=== PATIENT | male | born 1975 | race Caucasian/White ===

== ENCOUNTER 2018-12-19 17:02 | Emergency (ER) | payer BC ==
[~2018-12-19] VITALS: Ht 172.7 cm; Wt 113.4 kg
[2018-12-19 17:17] VITALS: BP 130/86
--- NOTE | 2018-12-19 17:49 | RAD ---
Indication:Possible fracture. Injury. TECHNIQUE: 3 views of the left foot COMPARISON:None FINDINGS: No acute fracture or dislocation. Electronically signed by: Ludin Levy DO (12/19/2018 5:46 PM) [facility]
[2018-12-19] MEDS ORDERED: HYDR-3165 PO (18:24)
[2018-12-19] MEDS ORDERED: DIPHTH,PERTUSS(ACELL),TET TOX 0.5 ML DISP.SYRIN. VAX IM ONE (18:30)
--- NOTE | 2018-12-19 18:51 | PHYS DOC ---
Past History Past Medical History: High Cholesterol, Hypertension Past Surgical History: Appendectomy, Other Additional Past Surgical Histo: eye Alcohol Use: Rarely Drug Use: None Adult General Chief Complaint Chief Complaint: TOE PROBLEM HPI HPI Patient is a 43-year-old male who dropped a heavy object onto his great toe 30 minutes prior to arrival patient has no history of diabetes he does take medications for chronic conditions he is 10 years status post a bone marrow transplant last tetanus status unknown positive bleeding dull moderate to severe nonradiating pain worse with palpation Review of Systems Review of Systems Constitutional: Denies fever or chills [] Eyes: Denies change in visual acuity, redness, or eye pain [] HENT: Denies nasal congestion or sore throat [] Respiratory: Denies cough or shortness of breath [] Musculoskeletal: D All other systems were reviewed and found to be within normal limits, except as documented in this note. Current Medications Current Medications Current Medications Medications (Trade) Dose Ordered Sig/Kade Start Time Stop Time Status Last Admin Dose Admin Diphtheria/ Tetanus/Acell Pertussis (Boostrix) 0.5 ml ONCE ONCE 12/19/18 18:30 12/19/18 18:31 DC 12/19/18 18:41 0.5 ML Allergies Allergies Allergies Coded Allergies Type Severity Reaction Last Updated Verified No Known Drug Allergies 12/19/18 No Physical Exam Physical Exam Constitutional: Well developed, well nourished, no acute distress, non-toxic appearance. [] HENT: Normocephalic, atraumatic, bilateral external ears normal, oropharynx moist, no oral exudates, nose normal. [] Eyes: PERRLA, EOMI, conjunctiva normal, no discharge. [] Neck: Normal range of motion, no tenderness, supple, no stridor. [] Abdomen: Bowel sounds normal, soft, no tenderness, no masses, no pulsatile masses. [] Skin there is a contusion noted to the great toe with a subungual hematoma as well as some bleeding coming from the proximal portion of the nailbed. Germinal H matrix appears grossly intact Back: No tenderness, no CVA tenderness. [] Extremities: Tenderness is noted above Neurologic: Alert and oriented X 3, normal motor function, normal sensory function, no focal deficits noted. [] Psychologic: Affect normal, judgement normal, mood normal. [] Current Patient Data Vital Signs Vital Signs Date Time Temp Pulse Resp B/P (MAP) Pulse Ox O2 Delivery O2 Flow Rate FiO2 12/19/18 17:17 98.5 90 18 100 Room Air EKG EKG [] Radiology/Procedures Radiology/Procedures [] Impressions: OMPARISON:None FINDINGS: No acute fracture or dislocation. Electronically signed by: Ludin Levy DO (12/19/2018 5:46 PM) [facility] DICTATED AND SIGNED BY: LUDIN LEVY DO DATE: 12/19/181745 CC: BONNIE MONTERO DO; [facility]; ELDA DUNBAR MD ~ Course & Med Decision Making Course & Med Decision Making Pertinent Labs and Imaging studies reviewed. (See chart for details) []X-ray negative in summary this is a 43-year-old male who suffered a blunt toe injury appears to have subungual hematoma as well as a loose nail I talked about the risks and benefits of the treatment options which would include conservative management with Xeroform and pressure dressing as well as profuse irrigation prior which is what we ended up agreeing performed in the emergency room. Tetanus status was given. We talked about possibly taking off the nail however of questionable ultimate benefit as he will lose the nail for sure regardless he prefers the conservative treatment option as noted above. Short course of pain medication was also provided patient voiced understanding of instructions no obvious fracture was identified on x-ray Dragon Disclaimer Dragon Disclaimer This electronic medical record was generated, in whole or in part, using a voice recognition dictation system. Departure Departure: Impression: Primary Impression: Subungual hematoma Disposition: HOME, SELF-CARE Condition: STABLE Patient Instructions: Subungual Hematoma, [id number] Scripts Hydrocodone Bit/Acetaminophen (NORCO 5-325 TABLET) 1 Each Tablet 1-2 TAB PO Q4-6HRS PRN for PAIN, #12 TAB 0 Refills Prov: ODALYS DE LA GARZA MD 12/19/18 ODALYS DE LA GARZA MD Dec 19, 2018 18:51
== END 2018-12-19 18:47 | disposition home or self-care (01) ==
LOC: ER 17:02
DX: S90.212A Contusion of left great toe with damage to nail, initial encounter (principal); E78.00 Pure hypercholesterolemia, unspecified; I10 Essential (primary) hypertension; W20.8XXA Other cause of strike by thrown, projected or falling object, initial encounter; Y93.89 Activity, other specified; Y92.89 Other specified places as the place of occurrence of the external cause; Y99.8 Other external cause status
CPT/HCPCS: 73630; 90471; 90715; 99284